=== PATIENT | female | born 1950 | race Two or more races ===

== ENCOUNTER → 2021-07-19 | Day surgery (SDC) | payer OTHER | END | disposition home or self-care (01) | LOC: ADM 07-14 15:15 → AMB-ENDOS 10:34 | PROVIDERS: ATTEND Colon & Rectal Surgery | DX: K63.5 Polyp of colon (principal); Z20.822 Contact with and (suspected) exposure to COVID-19; Z12.11 Encounter for screening for malignant neoplasm of colon ==